=== PATIENT | male | born 1995 | race Caucasian/White ===

== ENCOUNTER 2017-04-13 10:36 | Emergency (ER) | payer MEDICARE, OTHER ==
[~2017-04-13] VITALS: Ht 167.6 cm; Wt 84.0 kg
[2017-04-13 10:46] VITALS: BP 135/78
[2017-04-13] MEDS ORDERED: ARIP2TAB3 PO (10:50)
[2017-04-13] MEDS ORDERED: CEFTRIAXONE SODIUM 1 G/VIAL IM ONE (11:45)
[2017-04-13] MEDS ORDERED: LIDOCAINE HCL 1% 20ML VIAL (Pyxis) INJ INFIL ONE (11:45)
[2017-04-13] MEDS ORDERED: LIDOCAINE HCL 1% 10 MG/ML 10ML VIAL ONE (11:59)
== END 2017-04-13 12:03 | disposition home or self-care (01) ==
LOC: ER 11:07
DX: M27.2 Inflammatory conditions of jaws (principal)
CPT/HCPCS: 96372; 99283; J0696; J3490

== ENCOUNTER 2020-06-22 18:27 | Emergency (ER) | payer MEDICARE, OTHER ==
[~2020-06-22] VITALS: Ht 170.2 cm; Wt 127.0 kg
[~2020-06-22 18:27] MED LIST: ARIP2TAB3 PO
[2020-06-22] MEDS ORDERED: ACETAMINOPHEN 325MG TABLET PO ONE (20:15)
[2020-06-22 20:48] LABS: CLARITY URINE CLEAR (CLEAR); COLOR URINE YELLOW (YELLOW); KETONES URINE NEGATIVE (NEGATIVE); LEUKOCYTE ESTERASE URINE NEGATIVE (NEGATIVE); NITRITE URINE NEGATIVE (NEGATIVE); OCCULT BLOOD URINE 2+ (NEGATIVE); PROTEIN URINE 1+ (NEGATIVE); SPECIFIC GRAVITY URINE 1.009 (1.005-1.030); UROBILINOGEN URINE 0.2 E.U./dL (0.2-1.0)
[2020-06-22 23:49] VITALS: BP 145/82
== END 2020-06-22 23:52 | disposition home or self-care (01) ==
LOC: ER 18:27
DX: N20.0 Calculus of kidney (principal); Z86.59 Personal history of other mental and behavioral disorders
CPT/HCPCS: 81003; 99283